=== PATIENT | female | born 1970 | race African-American/Black ===

== ENCOUNTER 2017-04-23 16:36 | Observation (INO) | payer OTHER ==
[~2017-04-23] VITALS: Ht 160 cm; Wt 99.1 kg
[2017-04-23] MEDS ORDERED: POTA10CA PO (16:54)
[2017-04-23] MEDS ORDERED: PROP60TA14 PO (16:54)
[2017-04-23] MEDS ORDERED: CLON1TAB PO (16:54)
[2017-04-23] MEDS ORDERED: OXYB5TAB10 PO (17:05)
[2017-04-23] MEDS ORDERED: PANT40TA2 PO (17:05)
[2017-04-23] MEDS ORDERED: QUET1TAB10 PO (17:05)
[2017-04-23] MEDS ORDERED: RANI300C PO (17:05)
[2017-04-23] MEDS ORDERED: IBUP-1022 PO (17:05)
[2017-04-23] MEDS ORDERED: GABA-283 PO ×2 (17:05)
[2017-04-23] MEDS ORDERED: DEPA500T2 PO (17:05)
[2017-04-23] MEDS ORDERED: INVO100T PO (17:05)
[2017-04-23] MEDS ORDERED: MILK175T PO (17:05)
[2017-04-23] MEDS ORDERED: ALBU83IN INH (17:05)
[2017-04-23] MEDS ORDERED: CLONI1TA PO (17:05)
[2017-04-23] MEDS ORDERED: LEVO137T2 PO (17:05)
[2017-04-23] MEDS ORDERED: VALS1TAB48 PO (17:05)
[2017-04-23] MEDS ORDERED: AMIT24CA7 PO (17:05)
[2017-04-23] MEDS ORDERED: METF500T13 PO (17:05)
[2017-04-23] MEDS ORDERED: NARA2.5T PO (17:05)
[2017-04-23] MEDS ORDERED: AMLO25TA PO (17:05)
[2017-04-23] MEDS ORDERED: SYMB80INH INH (17:05)
[2017-04-23] MEDS ORDERED: AMIT25TA PO (17:05)
[2017-04-23] MEDS ORDERED: GLIM2TAB PO (17:05)
[2017-04-23] MEDS ORDERED: NS 1,000 ML IV ONE (18:30)
[2017-04-23] MEDS ORDERED: ONDANSETRON 4MG/2ML VIAL (J2405) IV ONE (18:30)
[2017-04-23] MEDS ORDERED: MORPHINE 4 MG/ML 1ML SYRINGE IV PRN (18:30)
[2017-04-23 18:49] LABS: BASO # 0.1 10^3/uL (0.0-0.2); BASO % 0.5 % (0.0-1.0); EOS # 0.2 10^3/uL (0.0-0.50); EOS % 2.4 % (0.0-3.0); IMMATURE GRANULOCYTE % 0.4 % (0-0); LYMPH # 3.1 10^3/uL (1.5-4.5); LYMPH % 31.1 % (24.0-44.0); MEAN CORPUSCULAR HEMOGLOBIN 26.1 pg (27.0-33.0); MEAN CORPUSCULAR HGB CONC 31.4 g/dl (32.0-36.5); MEAN CORPUSCULAR VOLUME 83.2 fl (80.0-96.0); MONO # 0.7 10^3/uL (0.0-0.8); MONO % 7.3 % (0.0-5.0); NEUTROPHILS # 5.9 10^3/uL (1.8-7.7); NEUTROPHILS % 58.3 % (36.0-66.0); PLATELET COUNT, AUTOMATED 333 10^3/uL (150-450); RED CELL DISTRIBUTION WIDTH 15.9 % (11.5-14.5)
[2017-04-23 19:08] LABS: INR 0.96
--- NOTE | 2017-04-23 19:10 | REPUSA ---
CT of the abdomen and pelvis without contrast Clinical statement: Pain. Technique: Multiple axial CT images were obtained from the base of the lungs to the floor of the pelv is utilizing 5 mm axial slices without administration of contrast. Coronal and sagittal reconstructio ns were also obtained. No comparison is available. Findings: Chest: The visualized lung bases are clear. Abdomen: The kidneys are normal in size bilaterally. There is no evidence of hydronephrosis or nephro lithiasis. The liver, spleen, pancreas, and adrenal glands are unremarkable. The aorta demonstrates n ormal caliber and contour. There is no abdominal lymphadenopathy or ascites. Pelvis: Moderate amount of stool fills the colon. There is a small amount of inflammation involving t he distal tip of the appendix. Scattered lymph nodes are seen in the mesentery of this region. Modera te fluid distention of the distal small bowel is noted. The urinary bladder is within normal limits. There is no pelvic lymphadenopathy or ascites. The other pelvic structures appear unremarkable. Bones: There are no suspicious osseous abnormalities seen. Impression: 1. Mild inflammation of the distal tip of the appendix with surrounding mesenteric adenitis. The find ings are suspicious for early acute appendicitis. No evidence of abscess or perforation is noted. Add itionally, there is moderate constipation and moderate fluid distention of the small bowel suggesting ileus. Follow-up is recommended as clinically indicated. 2. No evidence of hydronephrosis or nephrolithiasis. ER physician was notified of these findings at 7 PM on 04/23/2017.
[2017-04-23 19:28] LABS: ALBUMIN 3.6 GM/DL (3.2-5.2); ALBUMIN/GLOBULIN RATIO 0.78 (1.00-1.93); ALKALINE PHOSPHATASE 103 U/L (45-117); ALT/SGPT 42 U/L (12-78); AMYLASE 59 U/L (25-115); ANION GAP 8 MEQ/L (8-16); AST/SGOT 48 U/L (7-37); BILIRUBIN,DIRECT 0.1 MG/DL (0.0-0.2); BILIRUBIN,TOTAL 0.5 MG/DL (0.2-1.0); BLOOD UREA NITROGEN 12 MG/DL (7-18); CALCIUM LEVEL 9.6 MG/DL (8.5-10.1); CARBON DIOXIDE LEVEL 28 MEQ/L (21-32); CHLORIDE LEVEL 101 MEQ/L (98-107); CREATININE FOR GFR 0.69 MG/DL (0.55-1.02); GLOMERULAR FILTRATION RATE > 60.0 (>58); GLUCOSE, FASTING 112 MG/DL (70-105); POTASSIUM SERUM 4.7 MEQ/L (3.5-5.1); SODIUM LEVEL 137 MEQ/L (136-145); TOTAL PROTEIN 8.2 GM/DL (6.4-8.2)
[2017-04-23] MEDS ORDERED: ACETAMINOPHEN TAB 650MG DOSE (2X325MG) PO PRN (20:15)
[2017-04-23] MEDS ORDERED: ONDANSETRON 4MG/2ML VIAL (J2405) IV PRN (20:15)
[2017-04-23] MEDS ORDERED: BISACODYL 10 MG SUPP PR PRN (20:15)
[2017-04-23] MEDS ORDERED: KETOROLAC 30 MG/ML VIAL (J1885) IV PRN (20:15)
[2017-04-23] MEDS ORDERED: MAGNESIUM CITRATE 300 ML BTL PO ONE (20:15)
[2017-04-23] MEDS ORDERED: MOM 30ML SUSPENSION UDC PO PRN (20:15)
[2017-04-23] MEDS ORDERED: MORPHINE 2 MG/ML 1ML SYRINGE IV PRN (20:15)
[2017-04-23] MEDS ORDERED: NORCO, ANEXSIA 5/325MG TABLET (HYDROcodone/ACETAMINOPHEN) PO PRN (20:15)
[2017-04-23] MEDS ORDERED: BISACODYL 10 MG SUPP PR ONE (20:45)
[2017-04-23] MEDS ORDERED: LR 1,000 ML IV SCH (21:00)
[2017-04-23] MEDS ORDERED: SENOKOT S TAB PO SCH (21:00)
[2017-04-23 21:07] VITALS: BP 165/102
[2017-04-23] MEDS ORDERED: HEPARIN SOD (PORCINE) 5000 UNITS/ML VIAL SC SCH (22:00)
[2017-04-23] MEDS ORDERED: PIPERACILLIN/TAZOBACTAM SOD 3.375 GM in APPROPRIATE DILUENT 1 EA IV SCH (23:00)
[2017-04-24] MEDS ORDERED: PANTOPRAZOLE 40MG INJ (PROTONIX) (C9113) IV SCH (09:00)
== END 2017-04-23 21:08 | disposition home or self-care (01) ==
LOC: M ED 20:35 → M ED INP 20:36
PROVIDERS: ADMIT Surgery; ATTEND Surgery
DX: K59.00 Constipation, unspecified (principal); K50.90 Crohn's disease, unspecified, without complications; Z91.041 Radiographic dye allergy status; Z79.84 Long term (current) use of oral hypoglycemic drugs; Z79.899 Other long term (current) drug therapy
CPT/HCPCS: 74176; 80048; 80076; 82150; 83605; 83690; 85025; 85610; 85730; 96374; 96375; 99284; J2405